=== PATIENT | female | born 1980 | race Caucasian/White ===

== ENCOUNTER 2017-09-23 16:20 | Emergency (ER) | payer OTHER, MEDICAID ==
[~2017-09-23] VITALS: Ht 162.6 cm; Wt 61.2 kg
[~2017-09-23 16:20] MED LIST: ALEVE220 MG PO; AMOXICILLIN500 M1 PO; CIPROFLOXACIN500 M1 PO; CIPROFLOXIN HC2.5 M1 OPHTHALMIC; CYCLOBENZAPRINE5 MG PO; HYDROCHLOROTHIA25 M1; HYDROCODONE-AP1 EAC6; HYDROXYZINE HCL25 M2; IBUPROFEN 600600 M1 PO; KEFLEX500 M1 PO; LAMICTAL100 MG; LEXAPRO 10 MG T10 M1; METHOCARBAMOL500 M2 PO; NOHOMEMEDICATIONS; NORCO 5-325 TA1 EAC1 PO; NORCO 5-325 TA1 EACH PO; PROTONIX40 M1 PO; PYRIDIUM200 MG PO; SEROQUEL 50 MG50 MG; VENLAFAXIN37.5 MG/1
[2017-09-23] MEDS ORDERED: NAPROSYN500 MG PO (16:27)
[2017-09-23] MEDS ORDERED: BACLOFEN 10MG T10 MG PO (16:27)
[2017-09-23 17:39] LABS: INFLUENZA A ANTIGEN None Detected (None Detect); INFLUENZA B ANTIGEN None Detected (None Detect)
[2017-09-23] MEDS ORDERED: CLARITIN10 MG PO (17:47)
[2017-09-23] MEDS ORDERED: AMOXICILLIN 50500 MG PO (17:47)
[2017-09-23] MEDS ORDERED: TESSALON PERLE100 MG PO (17:47)
[2017-09-23] MEDS ORDERED: PROMETHAZINE V473 ML PO (17:47)
[2017-09-23 17:57] VITALS: BP 97/62
== END 2017-09-23 17:58 | disposition home or self-care (01) ==
LOC: M.ERS 16:20
PROVIDERS: Physician Assistant
DX: J20.9 Acute bronchitis, unspecified (principal); F41.9 Anxiety disorder, unspecified; F42.9 Obsessive-compulsive disorder, unspecified; F32.9 Major depressive disorder, single episode, unspecified; F17.210 Nicotine dependence, cigarettes, uncomplicated; Z91.5 Personal history of self-harm

== ENCOUNTER 2017-10-13 09:49 | Emergency (ER) | payer OTHER, MEDICAID ==
[~2017-10-13] VITALS: Ht 162.6 cm; Wt 61.2 kg
[~2017-10-13 09:49] MED LIST changes: +AMOXICILLIN 50500 MG PO; +BACLOFEN 10MG T10 MG PO; +CLARITIN10 MG PO; +NAPROSYN500 MG PO; +PROMETHAZINE V473 ML PO; +TESSALON PERLE100 MG PO
[2017-10-13] MEDS ORDERED: MOBIC15 MG PO (10:29)
[2017-10-13 10:38] VITALS: BP 117/61
== END 2017-10-13 10:39 | disposition home or self-care (01) ==
LOC: M.ERS 09:49
DX: M25.562 Pain in left knee (principal); G89.29 Other chronic pain; M54.5 Low back pain; M25.531 Pain in right wrist; F32.9 Major depressive disorder, single episode, unspecified; F41.9 Anxiety disorder, unspecified; F42.8 Other obsessive-compulsive disorder; F17.210 Nicotine dependence, cigarettes, uncomplicated; Z91.5 Personal history of self-harm

== ENCOUNTER 2018-04-18 01:52 | Emergency (ER) | payer OTHER ==
[~2018-04-18] VITALS: Ht 162.6 cm; Wt 59.4 kg
[~2018-04-18 01:52] MED LIST changes: +MOBIC15 MG PO
[2018-04-18 02:01] VITALS: BP 131/85
[2018-04-18] MEDS ORDERED: ALEVE220 M1 PO (02:03)
[2018-04-18] MEDS ORDERED: NORCO 5-325 TA1 EACH PO (02:03)
== END 2018-04-18 02:20 | disposition left against medical advice (07) ==
LOC: M.ERS 01:52
DX: S01.511A Laceration without foreign body of lip, initial encounter (principal); F17.210 Nicotine dependence, cigarettes, uncomplicated; F32.9 Major depressive disorder, single episode, unspecified; F41.9 Anxiety disorder, unspecified; F42.9 Obsessive-compulsive disorder, unspecified; W18.39XA Other fall on same level, initial encounter; Y92.89 Other specified places as the place of occurrence of the external cause; Y93.89 Activity, other specified; Y99.8 Other external cause status

== ENCOUNTER 2019-01-19 13:24 | Emergency (ER) | payer OTHER ==
[~2019-01-19] VITALS: Ht 162.6 cm; Wt 56.2 kg
[~2019-01-19 13:24] MED LIST changes: +ALEVE220 M1 PO
[2019-01-19] MEDS ORDERED: NEURONTIN 300M300 M2 PO (13:38)
[2019-01-19 14:11] LABS: ABSOLUTE EOSINOPHILS 0.1 thou/uL (0.0-0.7); ABSOLUTE LYMPHOCYTES 1.3 thou/uL (0.8-5.3); ABSOLUTE MONOCYTES 0.6 thou/uL (0.0-1.2); ABSOLUTE NEUTROPHILS 4.8 thou/uL (1.6-8.1); BASOPHILS 0.5 %; EOSINOPHILS 0.8 %; HEMATOCRIT 40.5 % (37.0-47.0); HEMOGLOBIN 13.3 gm/dL (12.0-15.0); LYMPHOCYTES 19.7 %; MCH 31.6 pg (26.0-34.0); MCHC 32.8 g/dL (28.0-37.0); MCV 96.1 fL (80.0-100.0); MPV 8.7 fl. (7.2-11.1); NUCLEATED RBCS 0 /100WBC; PLATELET COUNT* 211 thou/uL (150-400); RBC 4.22 mil/uL (4.20-5.00); RDW-CV 13.8 % (10.5-14.5); WBC 6.8 thou/uL (4.0-11.0)
[2019-01-19 14:18] LABS: CALCIUM 8.7 mg/dL (8.5-10.1); CREATININE 0.7 mg/dL (0.6-1.3); POTASSIUM 3.9 mmol/L (3.5-5.1)
[2019-01-19 14:22] LABS: ALBUMIN 3.4 g/dL (3.4-5.0); TOTAL BILIRUBIN 0.2 mg/dL (<0.1-1.0); TOTAL PROTEIN 6.5 g/dL (6.4-8.2)
[2019-01-19 14:49] LABS: URINE BILIRUBIN NEGATIVE (Negative); URINE BLOOD NEGATIVE (Negative); URINE CLARITY CLEAR; URINE COLOR YELLOW; URINE GLUCOSE-RANDOM NEGATIVE (Negative); URINE KETONES NEGATIVE (Negative); URINE LEUKOCYTES-REFLEX NEGATIVE (Negative); URINE NITRITE-REFLEX NEGATIVE (Negative); URINE PROTEIN NEGATIVE (Negative); URINE SPECIFIC GRAVITY >= 1.030 (1.005-1.030); URINE UROBILINOGEN 0.2 E.U./dl (0.2-1.0)
[2019-01-19 14:56] LABS: AMP/METHAMP Negative (Negative); BARBITURATES Negative (Negative); BENZODIAZEPINES Negative (Negative); COCAINE Negative (Negative); METHADONE Negative (Negative); OPIATES Negative (Negative); PCP Negative (Negative); THC Negative (Negative)
--- NOTE | 2019-01-19 16:13 | EKG ---
[place] [address] ELECTROCARDIOGRAM REPORT Name: ERWIN HANDLEY Room: [facility]#: [id number] Admission: 01/19/19 Attend Phys: Discharge: Date of : 82 Report #: [id number] THIS REPORT FOR: //name// [facility] ED Test Date: 2019-01-19 Test Time: 14:10:21 Pat Name: ERWIN HANDLEY Department: Room: Gender: F [employer] Mother: : 1980 Requested By: Edmundo Da Silva Order Number: [id number] : López Wisdom Measurements Intervals [place] Rate: 62 P: 59 AK: 203 QRS: 63 QRSD: 83 T: 60 QT: 437 QTc: 444 Interpretive Statements Sinus rhythm Borderline prolonged [place] interval Compared to ECG 03/21/2015 11:18:33 Sinus arrhythmia no longer present Electronically Signed On 01-19-2019 16:12:51 CDT by López Wisdom [email or web address] <ELECTRONICALLY SIGNED> By: López Wisdom MD, [facility] 01/19/19 1612 1410 1410 López Wisdom MD, FACC /EPI
[2019-01-19 16:30] VITALS: BP 98/58
== END 2019-01-19 16:31 | disposition home or self-care (01) ==
LOC: M.ERS 13:24
PROVIDERS: Nurse Practitioner Psychiatric/Mental Health
DX: R55 Syncope and collapse (principal); F32.9 Major depressive disorder, single episode, unspecified; F41.9 Anxiety disorder, unspecified; F42.9 Obsessive-compulsive disorder, unspecified; F17.210 Nicotine dependence, cigarettes, uncomplicated; Z91.5 Personal history of self-harm

== ENCOUNTER 2020-03-31 09:28 | Emergency (ER) | payer OTHER ==
[~2020-03-31] VITALS: Ht 165.1 cm; Wt 68.0 kg
[~2020-03-31 09:28] MED LIST changes: +NEURONTIN 300M300 M2 PO
[2020-03-31] MEDS ORDERED: TIZANIDINE HCL4 M1 PO (09:38)
[2020-03-31] MEDS ORDERED: GABAPENTIN600 M1 PO (09:38)
[2020-03-31] MEDS ORDERED: PROZAC40 MG PO (09:39)
[2020-03-31] MEDS ORDERED: TRAMADOL 50 MG50 MG PO (09:48)
[2020-03-31] MEDS ORDERED: FLEXERIL PO (09:48)
[2020-03-31 09:54] VITALS: BP 117/76
== END 2020-03-31 09:54 | disposition home or self-care (01) ==
LOC: M.ERS 09:28
DX: M43.6 Torticollis (principal); F17.210 Nicotine dependence, cigarettes, uncomplicated; Z98.51 Tubal ligation status